=== PATIENT | female | born 1970 | race Caucasian/White ===

== ENCOUNTER 2017-01-27 12:03 | Emergency (ER) | payer BC ==
[2015-11-09 04:47] VITALS: BMI 21.3
[~2017-01-27 12:03] MED LIST: AMBIEN10 MG PO; AMITRIPTYLINE H50 MG PO; CALAN120 MG PO; CYCLOBENZAPRINE10 MG PO; ELIQUIS5 MG PO; HYDROCODON-ACE1 EAC7 PO; LIPITOR40 MG PO; NEURONTIN600 MG PO; PROTONIX40 MG PO; SYNTHROID137 MCG PO; TOPAMAX50 MG PO; TOPROL XL25 MG PO; VALTREX1000 MG PO; XANAX1 MG PO; ZOFRAN4 MG PO
[2017-01-27 12:33] LABS: BASOPHILS 0.6 % (0-2); EOSINOPHILS 4.6 % (0-7); HEMATOCRIT 46.8 % (36.0-48.0); HEMOGLOBIN 16.4 g/dL (12-16); IMMATURE GRANULOCYTES 0.1 % (0-5); LYMPHOCYTES 35.6 % (15-50); MCH 31.8 pg (26.0-34.0); MCV 90.7 fL (80.0-100.0); MEAN PLATELET VOLUME 9.4 fL (7.4-10.4); MONOCYTES 6.9 % (2-11); NEUTROPHILS 52.2 % (40-80); PLATELET COUNT 344 10x3/uL (130-400); RBC 5.16 10x6/uL (4.00-5.40); RDW 13.2 % (11.5-14.5)
[2017-01-27 12:46] LABS: ALBUMIN 4.2 g/dL (3.4-5.0); ALKALINE PHOSPHATASE 63 U/L (46-116); ALT (SGPT) 24 U/L (10-68); BILIRUBIN - TOTAL 0.54 mg/dL (0.2-1.3); CALC OSMOLALITY 281 mosm/kg (275-300); CALCIUM 9.1 mg/dL (8.5-10.1); CARBON DIOXIDE 23.5 mmol/L (21.0-32.0); CHLORIDE - SERUM 105 mmol/L (98-107); GLUCOSE 97 mg/dL (74-106); POTASSIUM - SERUM 3.6 mmol/L (3.5-5.1); PROTEIN - SERUM 7.8 g/dL (6.4-8.2); SODIUM 141 mmol/L (136-145); UREA NITROGEN 14 mg/dL (7-18); eGFR NON AFRICAN AMERICAN 63 mL/min (90-120)
[2017-01-27 12:59] LABS: CKMB 0.3 U/L (0.0-3.6); CREATINE KINASE 61 UL (21-215)
[2017-01-27 13:01] LABS: TROPONIN-I < 0.017 ng/mL (0.000-0.060)
== END 2017-01-27 14:28 | disposition home or self-care (01) ==
LOC: D.ER 12:03
PROVIDERS: Emergency Medicine Emergency Medical Services
DX: R07.89 Other chest pain (principal); R06.00 Dyspnea, unspecified; F41.9 Anxiety disorder, unspecified; R00.0 Tachycardia, unspecified

== ENCOUNTER 2017-03-06 09:41 | Outpatient (CLI) | payer BC ==
[2015-11-09 04:47] VITALS: BMI 21.3
== END 2017-03-06 13:49 ==
LOC: D.MAMMO 09:41
DX: Z12.31 Encounter for screening mammogram for malignant neoplasm of breast (principal)

== ENCOUNTER 2017-03-16 15:27 | Emergency (ER) | payer BC ==
[2015-11-09 04:47] VITALS: BMI 21.3
[2017-03-16 16:14] LABS: BASOPHILS 0.7 % (0-2); HEMATOCRIT 43.7 % (36.0-48.0); HEMOGLOBIN 15.2 g/dL (12-16); IMMATURE GRANULOCYTES 0.3 % (0-5); LYMPHOCYTES 33.1 % (15-50); MCH 31.8 pg (26.0-34.0); MCHC 34.8 g/dL (31.0-37.0); MCV 91.4 fL (80.0-100.0); MEAN PLATELET VOLUME 9.4 fL (7.4-10.4); MONOCYTES 6.9 % (2-11); PLATELET COUNT 281 10x3/uL (130-400); RBC 4.78 10x6/uL (4.00-5.40); RDW 13.1 % (11.5-14.5); WBC 7.2 10x3/uL (4.8-10.8)
[2017-03-16 16:28] LABS: ALBUMIN 3.8 g/dL (3.4-5.0); ANION GAP 14.1 mmol/L (8-16); BILIRUBIN - TOTAL 0.43 mg/dL (0.2-1.3); CALCIUM 9.1 mg/dL (8.5-10.1); CARBON DIOXIDE 22.4 mmol/L (21.0-32.0); POTASSIUM - SERUM 3.5 mmol/L (3.5-5.1); PROTEIN - SERUM 7.1 g/dL (6.4-8.2)
== END 2017-03-16 20:45 | disposition home or self-care (01) ==
LOC: D.ER 15:27
PROVIDERS: Emergency Medicine
DX: G43.909 Migraine, unspecified, not intractable, without status migrainosus (principal)

== ENCOUNTER 2017-10-12 12:04 | Emergency (ER) | payer BC ==
[2015-11-09 04:47] VITALS: BMI 21.3
== END 2017-10-12 14:33 | disposition home or self-care (01) ==
LOC: D.ER 12:04
DX: G43.909 Migraine, unspecified, not intractable, without status migrainosus (principal)

== ENCOUNTER 2018-01-19 10:23 | Emergency (ER) | payer BC ==
[2015-11-09 04:47] VITALS: BMI 21.3
== END 2018-01-19 14:40 | disposition home or self-care (01) ==
LOC: D.ER 10:23
DX: T48.295A Adverse effect of other drugs acting on muscles, initial encounter (principal); Y92.89 Other specified places as the place of occurrence of the external cause; H02.402 Unspecified ptosis of left eyelid

== ENCOUNTER 2018-06-01 22:16 | Emergency (ER) | payer BC ==
[~2018-06-01] VITALS: Ht 160 cm; Wt 61.4 kg
[2018-06-01 22:22] VITALS: Ht 160 cm; Wt 61.4 kg
[2018-06-01] MEDS ORDERED: PROPRANOLOL HCL80 MG PO (22:25)
[2018-06-01] MEDS ORDERED: ATIVAN2 MG PO (22:25)
[2018-06-01] MEDS ORDERED: K-DUR20 MEQ PO (22:26)
[2018-06-01] MEDS ORDERED: FLORINEF 0.1 M0.1 MG PO (22:26)
[2018-06-01] MEDS ORDERED: LASIX40 MG PO (22:26)
[2018-06-01 22:56] LABS: BASOPHILS 0.6 % (0-2); EOSINOPHILS 4.9 % (0-7); HEMATOCRIT 41.5 % (36.0-48.0); HEMOGLOBIN 14.5 g/dL (12-16); IMMATURE GRANULOCYTES 0.2 % (0-5); LYMPHOCYTES 23.2 % (15-50); MCHC 34.9 g/dL (31.0-37.0); MCV 91.6 fL (80.0-100.0); MEAN PLATELET VOLUME 9.4 fL (7.4-10.4); MONOCYTES 7.6 % (2-11); NEUTROPHILS 63.5 % (40-80); PLATELET COUNT 323 10x3/uL (130-400); RBC 4.53 10x6/uL (4.00-5.40); WBC 6.6 10x3/uL (4.8-10.8)
[2018-06-01 23:02] LABS: APPEARANCE CLEAR (CLEAR); BILIRUBIN NEGATIVE (NEGATIVE); COLOR YELLOW (YELLOW); GLUCOSE NEGATIVE (NEGATIVE); KETONE NEGATIVE (NEGATIVE); NITRITE NEGATIVE (NEGATIVE); PROTEIN NEGATIVE (NEGATIVE); SPECIFIC GRAVITY 1.015 (1.005-1.020); UROBILINOGEN NORMAL (NORMAL)
[2018-06-01 23:10] LABS: ALBUMIN 3.8 g/dL (3.4-5.0); ANION GAP 11.4 mmol/L (8-16); BILIRUBIN - TOTAL 0.29 mg/dL (0.2-1.3); CALCIUM 8.7 mg/dL (8.5-10.1); CARBON DIOXIDE 25.3 mmol/L (21.0-32.0); POTASSIUM - SERUM 3.7 mmol/L (3.5-5.1); PROTEIN - SERUM 7.4 g/dL (6.4-8.2)
[2018-06-02 01:45] VITALS: BP 116/71
== END 2018-06-02 01:40 | disposition home or self-care (01) ==
LOC: D.ER 22:16
PROVIDERS: Family Medicine
DX: N23 Unspecified renal colic (principal); Z85.850 Personal history of malignant neoplasm of thyroid

== ENCOUNTER 2018-10-04 07:41 | Emergency (ER) | payer BC ==
[~2018-10-04] VITALS: Ht 160 cm; Wt 61.4 kg
[~2018-10-04 07:41] MED LIST changes: +ATIVAN2 MG PO; +FLORINEF 0.1 M0.1 MG PO; +K-DUR20 MEQ PO; +LASIX40 MG PO; +PROPRANOLOL HCL80 MG PO
[2018-10-04 07:44] VITALS: Ht 160 cm; Wt 61.4 kg
[2018-10-04 08:23] LABS: EOSINOPHILS 10.8 % (0-7); HEMATOCRIT 40.5 % (36.0-48.0); HEMOGLOBIN 13.8 g/dL (12-16); IMMATURE GRANULOCYTES 0.3 % (0-5); LYMPHOCYTES 30.3 % (15-50); MCH 31.9 pg (26.0-34.0); MCHC 34.1 g/dL (31.0-37.0); MCV 93.5 fL (80.0-100.0); MEAN PLATELET VOLUME 9.7 fL (7.4-10.4); MONOCYTES 8.9 % (2-11); NEUTROPHILS 48.7 % (40-80); PLATELET COUNT 267 10x3/uL (130-400); RBC 4.33 10x6/uL (4.00-5.40); RDW 14.5 % (11.5-14.5); WBC 6.3 10x3/uL (4.8-10.8)
[2018-10-04 08:27] LABS: APPEARANCE HAZY (CLEAR); BILIRUBIN NEGATIVE (NEGATIVE); COLOR DK YELLOW (YELLOW); GLUCOSE NEGATIVE (NEGATIVE); KETONE NEGATIVE (NEGATIVE); NITRITE POSITIVE (NEGATIVE); PROTEIN NEGATIVE (NEGATIVE); SPECIFIC GRAVITY 1.025 (1.005-1.020); UROBILINOGEN NORMAL (NORMAL)
[2018-10-04 08:31] LABS: AMORPHOUS SEDIMENT <1+ /lpf (NONE SEEN); BACTERIA MODERATE /hpf (NONE SEEN); EPITHELIAL CELLS OCC /hpf (0-5); HYALINE CAST 0-5 /lpf (NONE SEEN); MUCUS <1+ /lpf (NONE SEEN); RED CELLS - URINE 0-5 /hpf (0-5); WHITE CELLS - URINE 0-5 /hpf (0-5)
[2018-10-04 08:52] LABS: ALBUMIN 3.8 g/dL (3.4-5.0); ALKALINE PHOSPHATASE 77 U/L (46-116); ALT (SGPT) 22 U/L (10-68); BILIRUBIN - TOTAL 0.28 mg/dL (0.2-1.3); CALC OSMOLALITY 279 mosm/kg (275-300); CARBON DIOXIDE 18.8 mmol/L (21.0-32.0); CHLORIDE - SERUM 108 mmol/L (98-107); GLUCOSE 90 mg/dL (74-106); POTASSIUM - SERUM 3.7 mmol/L (3.5-5.1); PROTEIN - SERUM 7.5 g/dL (6.4-8.2); SODIUM 140 mmol/L (136-145); UREA NITROGEN 15 mg/dL (7-18); eGFR NON AFRICAN AMERICAN 63 mL/min (90-120)
[2018-10-04 09:04] LABS: CKMB 0.5 U/L (0.0-3.6); CREATINE KINASE 107 UL (21-215); PRO BNP 64 pg/mL (0-125); TROPONIN-I < 0.017 ng/mL (0.000-0.060)
[2018-10-04 12:16] VITALS: BP 99/67
== END 2018-10-04 12:17 | disposition home or self-care (01) ==
LOC: D.ER 07:41
PROVIDERS: Family Medicine
DX: B34.9 Viral infection, unspecified (principal); N20.0 Calculus of kidney; N39.0 Urinary tract infection, site not specified; R10.9 Unspecified abdominal pain; J02.9 Acute pharyngitis, unspecified; R07.9 Chest pain, unspecified

== ENCOUNTER 2018-10-29 06:04 | Day surgery (SDC) | payer BC ==
[~2018-10-29] VITALS: Ht 160 cm; Wt 63.5 kg
[~2018-10-29 06:04] MED LIST changes: -AMITRIPTYLINE H50 MG PO; +AMITRIPTYLINE150 MG PO; +TOPAMAX200 MG PO
[2018-10-29 06:25] LABS: HEMATOCRIT 40.6 % (36.0-48.0); HEMOGLOBIN 14.1 g/dL (12-16); MCH 31.5 pg (26.0-34.0); MCHC 34.7 g/dL (31.0-37.0); MCV 90.6 fL (80.0-100.0); MEAN PLATELET VOLUME 9.7 fL (7.4-10.4); RBC 4.48 10x6/uL (4.00-5.40); RDW 13.9 % (11.5-14.5); WBC 6.1 10x3/uL (4.8-10.8)
[2018-10-29 06:41] LABS: ANION GAP 15.6 mmol/L (8-16); CALCIUM 9.2 mg/dL (8.5-10.1); CARBON DIOXIDE 24.4 mmol/L (21.0-32.0); CREATININE - SERUM 1.1 mg/dL (0.6-1.3)
[2018-10-29 07:52] VITALS: BP 116/77; Ht 160 cm; Wt 63.5 kg
--- NOTE | 2018-10-29 09:35 | NUR ---
REC'D PT FROM SURGERY. FAMILY AT BEDSIDE. ICE WATER BROUGHT TO PT. ENCOURAGING TO TURN FROM SIDE TO SIDE AND HOLD RIMSO IN BLADDER FOR A MINIMUM OF 15 MINUTES.
--- NOTE | 2018-10-29 10:05 | NUR ---
PATIENT AMBULATED TO THE BATHROOM AND VOIDED WITHOUT DIFFICUULTY. FL KEYURY BROUGHT TO PT.
--- NOTE | 2018-10-29 10:22 | OP ---
PATIENT NAME: TAYLOR PHELAN MEDICAL RECORD: [id number] :74 LOCATION:D.OPS ADMISSION DATE: SURGEON: NYA DE LA TORRE MD DATE OF OPERATION: 10/29/2018 SURGEON: Nya De La Torre MD ANESTHESIA: TIVA by Miguel Angel Mendoza CRNA DIAGNOSIS: Interstitial cystitis. PROCEDURE: Cystoscopy, hydrodistention of the bladder, intravesical Rimso instillation. FINDINGS: Single ureteral orifices bilaterally with no bladder tumors. Diffuse bladder inflammation with glomerulations. ESTIMATED BLOOD LOSS: None. CLINICAL HISTORY: This is a 48-year-old female, G3, P3, A0, who was referred initially with kidney stones. However, the CT scan shows only a 2-mm kidney stone in the right kidney. She has ongoing complaints of bilateral flank pain, suprapubic pain, urinary frequency, nocturia times 2 and stress and urge incontinence. She has a history of 2 myocardial infarctions and congestive heart failure for which she is taking Lasix. She also has a cardiac tract ablation for atrial fibrillation 2 years ago. She has previously had a hysterectomy for endometriosis. On physical examination, she had urethral hypermobility with stress urinary incontinence and a positive Can test. She had tenderness in the trigone of the urethra. Her symptoms are highly suggestive of interstitial cystitis. We will first treat the interstitial cystitis and then later when this is controlled we will return and perform a pubovaginal sling for her stress incontinence. She also has a cystocele and a rectocele. SHE IS ALLERGIC TO BENADRYL, TALWIN, SULFA, CODEINE, DOXYCYCLINE, MORPHINE, AND ADHESIVE TAPE. She was given Ancef honeycomb blanket maker to the OR. DESCRIPTION OF PROCEDURE: The patient was given IV sedation. She was placed into dorsal lithotomy position and prepped and draped. A 17-Togolese cystoscope with 30-degree lens was used for visualization. She has quite significant vascularity of the bladder with no tumors being seen. Glomerulations are seen. As the bladder was distended to 500 mL, the bladder became quite red and angry. Some petechial hemorrhages were seen at that point. The bladder was then emptied through the cystoscope sheath after hydrodistention for about a minute. The scope was then removed. We then inserted a 16-Togolese Encinas catheter and then injected the 50 mL of Rimso solution into the bladder. The catheter was then removed, leaving the solution in the bladder. The patient will hold the solution for 15 minutes and then void it out. She will be seen in followup in 2 weeks' time to have Rimso treatment #2 if needed. TRANSINT:[id number] Voice Confirmation ID: [id number] DOCUMENT ID: [id number] OPERATIVE REPORT [id number] TAYLOR PHELAN ROBERT S MD at 1022 CC: [id number] DICTATION DATE: 10/29/18941 CLAY MINER: 10/29/18 [id number] [place] [address]
--- NOTE | 2018-10-29 10:35 | NUR ---
TOLERATED DIET AND VOIDING WITHOUT DIFFICULTY. IV DC'D WITH CATJHETER INTACT.
--- NOTE | 2018-10-29 11:05 | NUR ---
WRITTEN AND VERBAL DC INST GIVEN TO PT. VERBALIZED UNDERSTANDING.
--- NOTE | 2018-10-29 11:20 | NUR ---
DC'D HOME WITH FAMILY VIA PRIVATE VEHICLE. TAKEN TO VEHICLE VIA WC. STABLE AT TIME OF DC.
== END 2018-10-29 11:20 | disposition home or self-care (01) ==
LOC: D.OPS 06:04 → D.PAN 11:15 → D.OPS 11:15 → D.PAN 11:40
PROVIDERS: Anesthesiology
DX: N30.10 Interstitial cystitis (chronic) without hematuria (principal); N20.0 Calculus of kidney; R35.0 Frequency of micturition; R35.1 Nocturia; N39.46 Mixed incontinence; I25.2 Old myocardial infarction; I50.9 Heart failure, unspecified; I48.91 Unspecified atrial fibrillation; N81.6 Rectocele; Z88.5 Allergy status to narcotic agent; Z88.2 Allergy status to sulfonamides; Z88.8 Allergy status to other drugs, medicaments and biological substances; Z01.812 Encounter for preprocedural laboratory examination

== ENCOUNTER 2019-01-26 07:30 | Day surgery (SDC) | payer BC ==
[2019-01-25 10:50] LABS: HEMATOCRIT 40.8 % (36.0-48.0); HEMOGLOBIN 14.1 g/dL (12-16); MCH 31.3 pg (26.0-34.0); MCHC 34.6 g/dL (31.0-37.0); MCV 90.7 fL (80.0-100.0); RBC 4.5 10x6/uL (4.00-5.40); RDW 13.8 % (11.5-14.5); WBC 4.1 10x3/uL (4.8-10.8)
[2019-01-25 12:15] LABS: ANION GAP 16.7 mmol/L (8-16); CALCIUM 8.8 mg/dL (8.5-10.1); CARBON DIOXIDE 20.3 mmol/L (21.0-32.0); CREATININE - SERUM 0.9 mg/dL (0.6-1.3)
[~2019-01-26 07:30] MED LIST changes: +CO Q-10100 MG PO; +EMGALITY; +MULTI-DAY VITAM1 TAB PO
[2019-01-26 09:28] VITALS: BP 93/60; BMI 24.8
--- NOTE | 2019-01-26 17:04 | NUR ---
AT 1630 CONSULTED ANESTHESIA REGARDING DECREASED LOC. DR. OVIEDO AT BEDSIDE. VITAL SIGNS STABLE. O2 SAT 100% 3L. BAKERY ASSOCIATE STRENGTH EQUAL BILATERALLY. PATIENT LETHARGIC SHE DOES HOWEVER OPEN HER EYES ON COMMAND. NO NEW ORDERS AT THIS TIME. WILL CONTINUE TO MONITOR.
--- NOTE | 2019-01-26 17:07 | NUR ---
AT 1645 CONSULTED ANESTHESIA REGARDING DECREASED LOC, CONTINUED LETHARGY. VERBAL ORDERS RECEIVED TO ADMINISTER ROMAZICON 0.2MG/2ML X1 IN PACU NOW. ORDERS RECEIVED AND IMPLEMENTED. WILL CONTINUE TO MONITOR.
--- NOTE | 2019-01-26 17:22 | NUR ---
AT 1715 DR OVIEDO AT BEDSIDE. VITALS SIGNS STABLE. PATIENT MEETS CRITERIA PER DR OVIEDO FOR DISCHARGE. TRANSFERRED PATIENT TO OUTPATIENT.
--- NOTE | 2019-01-26 19:06 | NUR ---
1900 PT ASSISTED UP TO BATHROOM AND VOIDED A SMALL AMT. SMALL AMT OF BLOOD IN TOILET. HUGO PAD CHANGED AND BACK TO BED PT UNABLE TO KEEP EYES OPEN. VAGINAL PACKING REMOVED.
--- NOTE | 2019-01-26 19:12 | NUR ---
1900 ANESTHESIA NOTIFIED TO COME AND CHECK ON PT. PT IS SLOW TO AWAKEN
--- NOTE | 2019-01-26 19:59 | OP ---
PATIENT NAME: TAYLOR PHELAN MEDICAL RECORD: [id number] :74 LOCATION:D.OPS ADMISSION DATE: SURGEON: NYA DE LA TORRE MD DATE OF OPERATION: 01/26/2019 SURGEON: Nya De La Torre MD ANESTHESIA: General anesthesia by Dr. Toño Hammond. DIAGNOSES: 1. Female stress urinary incontinence. 2. Midline cystocele Ballinger-Walker grade II. 3. Rectocele Ballinger-Walker grade II. PROCEDURE: 1. Cystoscopy, pubovaginal sling with mesh -- [employer] Obtryx. 2. Cystocele repair with 8x10 cm Coloplast axis cadaveric dermis, rectocele repair with levator ani muscle plication. FINDINGS: On cystoscopy, no bladder injury, no bladder tumors. BLOOD LOSS: Minimal. 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 On physical examination, she had stress incontinence as well as cystocele grade II on the Ballinger-Walker grading scale and rectocele grade II. She has had a previous hysterectomy. She has been treated for the interstitial cystitis with Rimso. Her pelvic pain is gone. She still has issues with urinary leak incontinence with coughing, sneezing, and laughing. She is also concerned that she is not fully emptying the rectum after defecation. She was initially scheduled to have a pubovaginal sling with mesh and a cystocele repair with mesh. Subsequently, the FDA stopped the sale of all mesh for cystocele repairs. Therefore, we are going to use cadaveric dermis for the cystocele repair. The FDA still allows the use of mesh in the pubovaginal sling and I am going to use the [employer] Obtryx sling today. SHE IS ALLERGIC TO BENADRYL, TALWIN, SULFA, ADHESIVES, DOXYCYCLINE, MORPHINE. She was given Ancef production support supervisor to the OR. DESCRIPTION OF PROCEDURE: The patient was given induction of general anesthesia in supine position. She was then placed into dorsal lithotomy position and prepped and draped. We made sure that the legs were relatively low and that they were not high up. This prevents excessive tension on the pubovaginal sling when the patient stands up. A Encinas catheter was put to bag drainage. A weighted speculum was used to hold the posterior vaginal wall down. Then, #2 nylon sutures were used to retract the labia majora laterally. These were anchored to the medial thighs. The anterior vaginal wall was then infiltrated with Pitressin solution for hydrodissection. Twenty units of Pitressin was dissolved in 100 mL of injectable normal saline. A transverse incision was made in the anterior vaginal wall at the level of the bladder neck. Metzenbaum scissors were then used to deepen the dissection. We went through the pubocervical fascia and the endopelvic fascia on each side. We entered the space of Retzius and cleared the obturator foramen on each side. Posteriorly, we entered the presacral space and cleared the sacrospinous ligaments on each side. The distance from ischial spine to ischial spine was measured at 10 cm. The depth from the region of the vaginal cuff to the level of the bladder neck OPERATIVE REPORT [id number] TAYLOR PHELAN was measured at 6 cm. Therefore, an 8 x 12 cm human dermis graft was taken and 2 cm of the length of the graft was cut off to give a 10 cm length of graft. At the midpoint of the graft, an arch was cut so that the depth of the arch was 6 cm. This leaves 2 graft arms to go to the sacrospinous ligaments on each side. The Capio sutures were used to put 4 suspensory sutures of 2-0 Prolene. The 2 posterior sutures were placed in the sacrospinous ligaments, 1 on each side. They were placed 1 cm medial to the ischial spine in order to avoid hitting the internal pudendal artery and nerves. These sutures were found to hold quite strongly. On the left anterior suture, I managed to get into Kike's ligament and we had a good strong suspension there. The right anterior suture was placed near the apex of the obturator membrane. This provides our 4-point suspension. The graft then had the 4 sutures placed through the respective corners and the graft was brought down into position. The sutures were not tied down yet at this point. We then landmarked for the placement of the pubovaginal sling. These are inferior to the insertion of the adductor longus muscle on the descending pubic ramus. A stab incision was made here on each side. The helical trocars were then placed through the stab incisions and deep to the descending pubic ramus. The tips of the trocars, exited through the anterior apex of the obturator membrane into the vaginal dissection space. Here we attached the ends of the [employer] Obtryx II graft to each of the trocar needle tips. The needles were then withdrawn resulting in transobturator passage of the graft. There is a tab indicating the midpoint of the graft. This tab was placed under the mid urethra. At this point, the Encinas catheter was removed and we performed cystoscopy using a 17-Yoruba cystoscope. No bladder injury was seen. While I was performing cystoscopy, I completely filled the bladder with normal saline. The scope was then removed. Gentle suprapubic pressure could cause leakage of fluid per the urethra. The tab on the graft was cut off and removed entirely. Gently the tension on the graft was increased until with further suprapubic pressure there was no further leakage of fluid. At this point, we had set our graft tension. The clear plastic sheath material on either graft arm was removed entirely by cutting the exposed suture and pulling the graft arms free. A Soheila clamp was placed between the urethra and the graft in order to prevent removing the sheath material from increasing the graft tension. The graft arms were then cut off where they exited the inguinal skin. The skin was closed using simple interrupted 4-0 Vicryl. At this point, the pubovaginal sling was completely flat and it lays under the mid portion of the mid urethra. The respective sutures for the cystocele repair were then tied down and this resulted in an excellent reduction of the cystocele. The wound was irrigated out using normal saline. We then closed the anterior vaginal wall using running 4-0 Monocryl. We then turned our attention to the rectocele. She had a thin web of skin, which was obstructing the posterior fourchette. This was incised with an episiotomy type incision. An elliptical area of the posterior vaginal wall was then excised out after infiltrating that posterior vaginal wall with Pitressin solution for hydrodissection. Dissection was then carried out over the anterior rectum and the plane between the posterior vaginal wall and the anterior rectum. We extended laterally until the levator ani muscles on either side of the rectum were fully dissected free and clear of fat. Horizontal mattress sutures were then placed using 2-0 Prolene, applied using the Kijubi suture courtesy van driver into the levator ani muscles on each side. Once these mattress sutures were tied down, it resulted in the levator muscles meeting in the midline and pushing the rectum down. We started from deep and worked to a more superficial plane. OPERATIVE REPORT [id number] TAYLOR PHELAN Finally, the perineal body was repaired using 2-0 Prolene and a free needle and the perineal body was repaired using a horizontal mattress stitch. The wound was irrigated out using saline and the vaginal mucosa was then reapproximated using running 4-0 Monocryl. At this point, the Encinas catheter was removed. I packed the vagina with Kerlix infiltrated with estrogen cream. The vaginal packing will be removed prior to the patient's going home today. We will also encourage the patient to void prior to going home today. If she is unable to void postanesthesia, then we will have to send her home with an indwelling Encinas catheter. I will see her in followup next week to check on her voiding symptoms and check to be sure that she is emptying her bladder. TRANSINT:[id number] Voice Confirmation ID: [id number] DOCUMENT ID: [id number] NYA DE LA TORRE MD at 1959 CC: [id number] DICTATION DATE: 01/26/19 1550 [employer]IDE [employer]: 01/26/19 1639 [address] [facility] [address] [id number]
--- NOTE | 2019-01-26 20:17 | NUR ---
1944 IV REMOVED AND PT VOIDED FOR THE SECOND TIME. ASSISTED WITH GETTING DRESSED AND IN W/C INSTRUCTIONS GIVEN
== END 2019-01-26 20:00 | disposition home or self-care (01) ==
LOC: D.OPS 07:30 → D.PAN 09:15 → D.OPS 09:15
PROVIDERS: Anesthesiology; ATTEND Urology
DX: N39.3 Stress incontinence (female) (male) (principal); N81.11 Cystocele, midline; N81.6 Rectocele; Z88.5 Allergy status to narcotic agent; Z88.2 Allergy status to sulfonamides; Z88.8 Allergy status to other drugs, medicaments and biological substances; Z01.812 Encounter for preprocedural laboratory examination

== ENCOUNTER 2019-01-27 07:02 | Emergency (ER) | payer BC ==
[~2019-01-27] VITALS: Ht 160 cm; Wt 63.6 kg
[2019-01-27 07:09] VITALS: Ht 160 cm; Wt 63.6 kg
[2019-01-27 08:17] LABS: APPEARANCE CLEAR (CLEAR); BACTERIA FEW /hpf (NONE SEEN); COLOR ORANGE (YELLOW); EPITHELIAL CELLS RARE /hpf (0-5); WHITE CELLS - URINE OCC /hpf (0-5)
[2019-01-27 08:18] LABS: MUCUS <1+ /lpf (NONE SEEN)
[2019-01-27 09:43] VITALS: BP 124/75
== END 2019-01-27 09:45 | disposition home or self-care (01) ==
LOC: D.ER 07:02
PROVIDERS: Family Medicine
DX: R33.9 Retention of urine, unspecified (principal); Z98.890 Other specified postprocedural states

== ENCOUNTER 2019-01-29 22:04 | Emergency (ER) | payer BC ==
[~2019-01-29] VITALS: Ht 160 cm; Wt 64.1 kg
[2019-01-29 22:37] VITALS: Ht 160 cm; Wt 64.1 kg
[2019-01-30 00:02] LABS: HEMATOCRIT 35.8 % (36.0-48.0); HEMOGLOBIN 12.8 g/dL (12-16); LYMPHOCYTES 28.2 % (15-50); MCH 32.3 pg (26.0-34.0); MCHC 35.8 g/dL (31.0-37.0); MCV 90.4 fL (80.0-100.0); NEUTROPHILS 63.5 % (40-80); PLATELET COUNT 323 10x3/uL (130-400); RBC 3.96 10x6/uL (4.00-5.40); RDW 13.6 % (11.5-14.5); WBC 6.6 10x3/uL (4.8-10.8)
[2019-01-30 00:07] VITALS: BP 118/72
[2019-01-30 00:12] LABS: CALC OSMOLALITY 279 mosm/kg (275-300); CALCIUM 8.9 mg/dL (8.5-10.1); CHLORIDE - SERUM 106 mmol/L (98-107); CREATININE - SERUM 0.7 mg/dL (0.6-1.3); GLUCOSE 105 mg/dL (74-106); POTASSIUM - SERUM 3.2 mmol/L (3.5-5.1); SODIUM 141 mmol/L (136-145); UREA NITROGEN 11 mg/dL (7-18); eGFR NON AFRICAN AMERICAN > 90 mL/min (90-120)
== END 2019-01-30 00:07 | disposition home or self-care (01) ==
LOC: D.ER 22:04
PROVIDERS: Emergency Medicine
DX: R33.8 Other retention of urine (principal)

== ENCOUNTER 2019-11-14 06:56 | Emergency (ER) | payer BC ==
[~2019-11-14] VITALS: Ht 160 cm; Wt 68.2 kg
[2019-11-14 07:00] VITALS: Ht 160 cm; Wt 68.2 kg
[2019-11-14 07:25] LABS: BILIRUBIN NEGATIVE (NEGATIVE); GLUCOSE NEGATIVE (NEGATIVE); KETONE NEGATIVE (NEGATIVE); NITRITE POSITIVE (NEGATIVE); SPECIFIC GRAVITY 1.025 (1.005-1.020); UROBILINOGEN NORMAL (NORMAL)
[2019-11-14 07:29] LABS: BACTERIA MANY /hpf (NEGATIVE); EPITHELIAL CELLS 0-5 /hpf (0-5); RED CELLS - URINE 0-5 /hpf (0-5)
[2019-11-14 07:44] LABS: BASOPHILS 0.4 % (0-2); EOSINOPHILS 8.1 % (0-7); HEMATOCRIT 38.4 % (36.0-48.0); HEMOGLOBIN 13.4 g/dL (12-16); IMMATURE GRANULOCYTES 0.6 % (0-5); LYMPHOCYTES 21.5 % (15-50); MCH 32.1 pg (26.0-34.0); MCHC 34.9 g/dL (31.0-37.0); MCV 92.1 fL (80.0-100.0); MEAN PLATELET VOLUME 9.1 fL (7.4-10.4); MONOCYTES 8.2 % (2-11); NEUTROPHILS 61.2 % (40-80); PLATELET COUNT 296 10x3/uL (130-400); RBC 4.17 10x6/uL (4.00-5.40); RDW 13.5 % (11.5-14.5); WBC 7.2 10x3/uL (4.8-10.8)
[2019-11-14 07:50] LABS: ANION GAP 11.4 mmol/L (8-16); CALCIUM 8.5 mg/dL (8.5-10.1); CARBON DIOXIDE 26.3 mmol/L (21.0-32.0); CREATININE - SERUM 1.1 mg/dL (0.6-1.3); HCG SERUM NEGATIVE (NEGATIVE); POTASSIUM - SERUM 3.7 mmol/L (3.5-5.1)
[2019-11-14 07:56] LABS: ALBUMIN 3.4 g/dL (3.4-5.0); BILIRUBIN - TOTAL 0.27 mg/dL (0.2-1.3); PROTEIN - SERUM 6.7 g/dL (6.4-8.2)
[2019-11-14] MEDS ORDERED: KEFLEX500 MG PO (08:28)
[2019-11-14] MEDS ORDERED: PHENAZOPYRIDIN200 MG PO (08:28)
[2019-11-14] MEDS ORDERED: MACROBID100 MG PO (08:28)
[2019-11-14] MEDS ORDERED: ACETAMINOPHEN500 M1 PO (08:29)
[2019-11-14] MEDS ORDERED: IBUPROFEN800 MG PO (08:29)
[2019-11-14] MEDS ORDERED: CYCLOBENZAPRINE10 MG PO (08:29)
[2019-11-14 08:53] VITALS: BP 120/89
== END 2019-11-14 09:04 | disposition home or self-care (01) ==
LOC: D.ER 06:56
PROVIDERS: Family Medicine
DX: R10.9 Unspecified abdominal pain (principal); N30.91 Cystitis, unspecified with hematuria; R30.0 Dysuria; N39.0 Urinary tract infection, site not specified